=== PATIENT | female | born 1945 | race Caucasian/White ===

== ENCOUNTER 2018-08-05 08:02 | Day surgery (SDC) | payer OTHER, MEDICARE ==
[2018-07-30 13:29] VITALS: BMI 19.4
[2018-08-05 10:01] VITALS: TEMP 97.9
[2018-08-05 10:28] VITALS: BP 139/75; PULSE 61
== END 2018-08-05 11:00 | disposition home or self-care (01) ==
LOC: FASU-ENDO 08:02
PROVIDERS: ATTEND Internal Medicine Gastroenterology
PROC: 0DJD8ZZ Inspection of Lower Intestinal Tract, Via Natural or Artificial Opening Endoscopic (ICD-10-PCS; principal; 2018-08-05 09:00)
DX: Z12.11 Encounter for screening for malignant neoplasm of colon (principal); Z80.0 Family history of malignant neoplasm of digestive organs

== ENCOUNTER 2024-06-01 16:33 | Inpatient (IN) | payer OTHER, MEDICARE ==
[2024-06-01 16:58] LABS: HEMATOCRIT 42.7 % (32.4-45.2); HEMOGLOBIN 13.7 G/dL (10.7-15.3); MCH 29.8 pg (25.7-33.7); MEAN PLT VOLUME 7.8 fl (7.5-11.1); PLATELET COUNT 132.7 10^3/uL (134-434); RBC 4.59 10^6/uL (3.60-5.2); RDW 14.2 % (11.6-15.6); WHITE BLOOD COUNT 7.4 10^3/uL (4.0-10.8)
[2024-06-01 17:06] LABS: INR 1.05 (0.83-1.09); PROTHROMBIN TIME (PATIENT) 11.9 SEC (9.7-13.0)
[2024-06-01 17:09] LABS: ACTIVATED PTT 30.6 SECONDS (25.2-36.5)
[2024-06-01] MEDS ORDERED: ACETAMINOPHEN 325 MG TABLET (FP) ONE (17:11)
[2024-06-01] MEDS: ACETAMINOPHEN 325 MG TABLET (FP) PO ONE (17:15)
[2024-06-01 17:16] LABS: ALBUMIN 4.5 g/dl (3.4-5.0); BILIRUBIN,TOTAL 0.8 mg/dl (0.2-1); CALCIUM 9.5 mg/dl (8.5-10.1); CREATININE 0.8 mg/dl (0.6-1.3); POTASSIUM 3.9 mmol/L (3.5-5.1); TOT PROT 7.2 g/dl (6.4-8.2)
[2024-06-01 18:03] LABS: PLATELET ESTIMATE SLT DECREASE
[2024-06-01] MEDS: SODIUM CHLORIDE 1,000 ML IV STA (18:25)
[2024-06-01 23:35] LABS: EPITHELIAL CELLS 0-5 /hpf
[2024-06-02] MEDS ORDERED: BENZONATATE 200 MG CAPSULE PO PRN (00:35)
[2024-06-02 04:56] VITALS: BMI 19.3
[2024-06-02] MEDS ORDERED: SODIUM CHLORIDE 0.45% 1,000 ML IV SCH (06:15)
[2024-06-02] MEDS: LEVOTHYROXINE NA 25 MCG TABLET (FP) PO SCH (06:20)
[2024-06-02 08:05] LABS: CALCIUM 8.3 mg/dl (8.5-10.1); CREATININE 0.8 mg/dl (0.6-1.3); MAGNESIUM 1.8 mg/dL (1.8-2.4); PHOSPHOROUS 2.3 (2.5-4.9); POTASSIUM 3.7 mmol/L (3.5-5.1)
[2024-06-02 09:59] LABS: BASO % 0.8 % (0-2.0); EOS % 0.3 % (0-4.5); HEMATOCRIT 34.6 % (32.4-45.2); HEMOGLOBIN 11.8 GM/dL (10.7-15.3); LYMPH % 18.5 % (8-40); MCH 31.2 pg (25.7-33.7); MCHC 34.3 g/dl (32.0-36.0); MEAN CELL VOLUME 91.1 fl (80-96); MEAN PLT VOLUME 7.3 fl (7.5-11.1); MONO % 11.7 % (3.8-10.2); NEUT % 68.7 % (42.8-82.8); PLATELET COUNT 127 10^3/uL (134-434); RDW 13.5 % (11.6-15.6); WHITE BLOOD COUNT 6.2 K/mm3 (4.0-10.0)
[2024-06-02] MEDS: DORZOLAMIDE HCL/TIMOLOL OPHTHALMIC SOLUTION 10 ML BOTTLE OD SCH (10:04)
[2024-06-02] MEDS: LOSARTAN POTASSIUM 50 MG TABLET PO SCH (10:04)
[2024-06-02] MEDS: NEBIVOLOL 5 MG TABLET (FP) PO SCH (10:04)
[2024-06-02] MEDS: SERTRALINE HCL 50 MG TABLET (FP) PO SCH (10:04)
[2024-06-02] MEDS: ACETAMINOPHEN 325 MG TABLET (FP) PO PRN (10:05)
[2024-06-02] MEDS: POTASSIUM PHOSPHATE 15 MM in SODIUM CHLORIDE 250 ML IVPB ONE (10:06)
[2024-06-02] MEDS: LIDOCAINE 5% TOPICAL PATCH TP SCH (13:25)
[2024-06-02] MEDS: LACTATED RINGERS SOLUTION 1,000 ML/1,000 ML INFUS.BAG IV SCH (13:26)
[2024-06-02 13:36] VITALS: RESP 18
[2024-06-02] MEDS: ROSUVASTATIN CA 5 MG TABLET PO SCH (21:38)
[2024-06-02] MEDS: LIDOCAINE PATCH REMOVAL MC SCH (21:42)
[2024-06-02] MEDS: LATANOPROST 0.005% OPHTH SOLN 2.5ML BOTTLE OD SCH (21:43)
[2024-06-02] MEDS ORDERED: PATIENT'S OWN MEDICATION (NON-FORMULARY) (Bimatoprost [Lumigan] 7.5 ML Drops) OD SCH (22:00)
[2024-06-02] MEDS: DOCUSATE SODIUM 100 MG CAPSULE (FP) PO PRN (22:25)
[2024-06-03 08:28] LABS: ALBUMIN 3.5 g/dl (3.4-5.0); BILIRUBIN,TOTAL 0.6 mg/dl (0.2-1); CALCIUM 8.6 mg/dl (8.5-10.1); CREATININE 0.7 mg/dl (0.6-1.3); POTASSIUM 4.2 mmol/L (3.5-5.1); TOT PROT 5.6 g/dl (6.4-8.2)
[2024-06-03] MEDS: ENOXAPARIN NA (PORCINE) 30 MG/0.3 ML DISP.SYRIN SQ SCH (09:28)
[2024-06-03 10:17] LABS: BASO % 0.5 % (0-2.0); EOS % 0.3 % (0-4.5); HEMOGLOBIN 11.9 GM/dL (10.7-15.3); LYMPH % 17.2 % (8-40); MCH 30.4 pg (25.7-33.7); MCHC 33.1 g/dl (32.0-36.0); MEAN CELL VOLUME 91.9 fl (80-96); MEAN PLT VOLUME 7.6 fl (7.5-11.1); MONO % 9.8 % (3.8-10.2); NEUT % 72.2 % (42.8-82.8); PLATELET COUNT 124 10^3/uL (134-434); RBC 3.91 M/mm3 (3.60-5.2); WHITE BLOOD COUNT 6.6 K/mm3 (4.0-10.0)
[2024-06-03 13:08] VITALS: BP 122/68; PULSE 72; TEMP 99
[2024-06-03] MEDS: CEFTRIAXONE 1 GM in DEXTROSE 5%-WATER - 50 ML IVPB ONE (13:12)
[2024-06-03] MEDS: AZITHROMYCIN IVPB 500 MG/250 ML BAG IVPB ONE (13:12)
== END 2024-06-03 17:18 | disposition home or self-care (01) | DRG 194 ==
LOC: FER 16:33 → FM/S 20:15 → OBSVTOIN 06-02 11:47
PROVIDERS: ADMIT Internal Medicine; ATTEND Internal Medicine
DX: J18.9 Pneumonia, unspecified organism (principal); Z68.1 Body mass index [BMI] 19.9 or less, adult; E78.5 Hyperlipidemia, unspecified; E03.9 Hypothyroidism, unspecified; I10 Essential (primary) hypertension; R42 Dizziness and giddiness; E86.0 Dehydration; R79.89 Other specified abnormal findings of blood chemistry; R63.0 Anorexia
CPT/HCPCS: 0241U-QW; 36415; 70450-TC; 71045-TC-FY; 72125-TC; 72170-TC-FY; 74176-TC; 80048; 80053; 81003; 81015; 82607; 82746; 83605; 83735; 84100; 84439; 84443; 84484; 85025; 85610; 85730; 86850; 86900; 86901; 87040; 87045; 87046; 87086; 87633; 93005; 97116-GP; 99285-25; G0378

== ENCOUNTER 2025-05-14 17:28 | Emergency (ER) | payer OTHER, MEDICARE ==
[2025-05-14 17:41] VITALS: BP 130/78; PULSE 84; RESP 18; TEMP 98.6; BMI 24.5
[2025-05-14] MEDS ORDERED: ACETAMINOPHEN 500 MG TABLET (FP) ONE (19:08)
[2025-05-14] MEDS: ACETAMINOPHEN 500 MG TABLET (FP) PO ONE (19:09)
== END 2025-05-14 20:15 | disposition home or self-care (01) ==
LOC: FER 17:28
PROC: 0HQ1XZZ Repair Face Skin, External Approach (ICD-10-PCS; principal; 2025-05-14)
DX: S01.81XA Laceration without foreign body of other part of head, initial encounter (principal); S20.211A Contusion of right front wall of thorax, initial encounter; W01.198A Fall on same level from slipping, tripping and stumbling with subsequent striking against other object, initial encounter
CPT/HCPCS: 70450-TC; 71101-TC-RT-FY; 99284-25